=== PATIENT | male | born 1975 | race Caucasian/White ===

== ENCOUNTER 2017-10-05 21:10 | Emergency (ER) | payer OTHER ==
[2017-10-05 21:24] VITALS: BP 151/106; PULSE 130; RESP 20; TEMP 98.6; O2SAT 96
--- NOTE | 2017-10-05 21:40 | EDPHY ---
H & P Stated Complaint: ETOH Time Seen by Provider: 10/05/17 21:40 - Personal History Current Tetanus Diphtheria and Acellular Pertussis (TDAP): No - Medical/Surgical History Hx Asthma: No Hx Chronic Respiratory Disease: No Hx Diabetes: No Hx Cardiac Disease: Yes Hx Renal Disease: No Hx Cirrhosis: No Hx Alcoholism: Yes Hx HIV/AIDS: No Hx Splenectomy or Spleen Trauma: No Other PMH: congenital left hand deformity,pec muscle left side, ETOH abuse - Social History Smoking Status: Current every day smoker Constitutional: Initial Vital Signs Temperature (C) 37 C 10/05/17 21:21 Heart Rate 130 H 10/05/17 21:21 Respiratory Rate 20 10/05/17 21:21 Blood Pressure 151/106 H 10/05/17 21:21 O2 Sat (%) 96 10/05/17 21:21 O2 Delivery Mode Room Air Allergies/Adverse Reactions: Penicillins Allergy (Verified 10/05/17 21:20) Home Medications: Medication Instructions Recorded Cholecalciferol Vit D3 [Vitamin D3 1,000 units PO DAILY 08/09/14 (*)] Multivitamins [Multivitamin (*)] 1 each PO DAILY 08/09/14 [place]-3 Fatty Acids [Fish Oil 1000 2,000 mg PO DAILY 08/09/14 mg (*)] Aspirin [Aspirin 81mg (*)] 81 mg PO DAILY #0 tab 08/11/14 Ibuprofen [Motrin (*)] 400 mg PO TID PRN #0 tab 08/11/14 Medical Decision Making ED Course/Re-evaluation: CHIEF COMPLAINT: Wants to detox from alcohol. HISTORY OF PRESENT ILLNESS: The patient is a 42 y/o male with a history of alcohol abuse requesting help detoxing from alcohol. He has gone to rehab once previously and is willing to go again tonight. He said, "I came here voluntarily because I know I have a problem." His last alcohol intake was just prior to checking in here. He denies acute complaints. REVIEW OF SYSTEMS: A 10 point review of systems was performed and is negative with the exception of the elements mentioned in the history of present illness. PHYSICAL EXAM: HR, BP, O2 Sat, RR. Temp noted General Appearance: Alert, well hydrated, appropriate, and non-toxic appearing. Head: Atraumatic without scalp tenderness or obvious injury Eyes: Pupils equal, round, reactive to light and accommodation, EOMI, no trauma , no injection. Nose: Atraumatic, no rhinorrhea, clear. Throat: Mucus membranes moist. Neck: Supple, nontender, no lymphadenopathy. Respiratory: No retractions, no distress, no wheezes, and no accessory muscle use. Lungs are clear to auscultation bilaterally. Cardiovascular: Regular rate and rhythm, no murmurs, rubs, or gallops. Good capillary refill all extremities. Gastrointestinal: Abdomen is soft, nontender, non-distended, no masses, no rebound, no guarding, no peritoneal signs. Musculoskeletal: Normal active ROM of all extremities, atraumatic. Neurological: Alert, appropriate, and interactive. The patient has non-focal cranial nerves, motor, sensory, and cerebellar exam. Skin: No rashes, good turgor, no nodules on palpation. Past medical history: Alcohol abuse Past surgical history: noncontributory Family history: noncontributory Social history: Daily alcohol use. Lives in [place]. DIFFERENTIAL DIAGNOSIS: The differential diagnosis for the patient's symptoms included but was not limited to alcohol intoxication, alcohol abuse, alcohol withdrawal, psychiatric illness. MEDICAL DECISION MAKING: This is a 42 y/o male voluntarily requesting help getting into detox center for alcohol abuse. He has no acute complaints. He will be discharged to the [facility] with Librium prepack. Follow up and return precautions given. Patient has decided he does not want to go to the [facility]. He will not receive script for Librium and will be discharged home. Departure - Departure Disposition: Home, Routine, Self-Care Clinical Impression: Alcohol intoxication Qualifiers: Complication of substance-induced condition: uncomplicated Qualified Code(s): F10.920 - Alcohol use, unspecified with intoxication, uncomplicated Condition: Good Instructions: Alcohol Intoxication (ED) Additional Instructions: 1. Take Librium as prescribed for symptoms of withdrawal. 2. Go directly to detox center. 3. Follow up with primary care provider as needed. Referrals: Reid Jolley MD [Primary Care Provider] - As per Instructions [facility] Detox 24 Hours [Outside] - As per Instructions Report Scribed for: Ata Miguel Report Scribed by: Lily Marks Date of Report: 10/05/17 Time of Report: 21:44
[2017-10-05] MEDS ORDERED: CHLORDIAZEPOXIDE 25MG PREPK#6 BTL TAKEHOME ONE (21:44)
== END 2017-10-05 22:11 | disposition home or self-care (01) ==
DX: F10.920 Alcohol use, unspecified with intoxication, uncomplicated (principal); F17.200 Nicotine dependence, unspecified, uncomplicated; Z79.82 Long term (current) use of aspirin

== ENCOUNTER 2018-07-31 22:04 | Inpatient (IN) | payer OTHER ==
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
[2018-07-31 22:30] LABS: PLATELET COUNT 177 10^3/uL (150-400)
[2018-07-31 22:38] LABS: INR 0.97 (0.83-1.16); PROTIME(PATIENT) 13.1 SEC (12.0-15.0)
[2018-07-31] MEDS ORDERED: levETIRAcetam 1000MG/NACL 100 ML IV ONE (23:09)
[2018-07-31] MEDS ORDERED: ONDANSETRON 4 MG/2 ML VIAL IVP PRN (23:57)
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
[2018-07-31] MEDS ORDERED: IOPAMIDOL (ISOVUE-300) 100 ML BTL ONE (23:58)
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
[2018-08-01] MEDS ORDERED: fentaNYL 100 MCG/2 ML INJ IVP ONE (00:30)
[2018-08-01] MEDS: NS 1,000 ML IV SCH ×3 (00:41→20:52)
[2018-08-01] MEDS ORDERED: IOPAMIDOL (ISOVUE-300) 100 ML BTL ONE (00:42)
[2018-08-01] MEDS ORDERED: IOPAMIDOL (ISOVUE 370) 100 ML BTL IV ONE (00:52)
[2018-08-01] MEDS ORDERED: LORazepam 2 MG/ML INJ ONE (01:02)
[2018-08-01] MEDS ORDERED: LORazepam 2 MG/ML INJ IVP ONE (01:04)
[2018-08-01] MEDS ORDERED: LORazepam 2 MG/ML INJ IVP PRN (01:05)
[2018-08-01] MEDS ORDERED: FAMOTIDINE 20 MG in NS 100 ML IV ONE (01:06)
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
[2018-08-01 07:55] LABS: PLATELET COUNT 156 10^3/uL (150-400)
[2018-08-01] MEDS: levETIRAcetam 500MG/NACL 100 ML IV SCH ×2 (08:46→20:52)
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
[2018-08-01] MEDS: FAMOTIDINE 20 MG/NACL 50 ML IV SCH ×2 (09:14→20:52)
[2018-08-01] MEDS: TRANEXAMIC ACID 650 MG TAB PO SCH ×2 (09:17→21:48)
[2018-08-01] MEDS ORDERED: FLUMAZENIL 0.5 MG/5 ML MDV IVP PRN (10:14)
[2018-08-01] MEDS: LORazepam 2 MG/ML INJ IVP PRN ×4 (10:39→12:42)
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
[2018-08-01] MEDS: THIAMINE HCL 500 MG in NS 100 ML IV SCH (11:52)
[2018-08-01] MEDS ORDERED: PROTOCOL K PHOSPHATE 1 DOSE IV PRN (12:11)
[2018-08-01] MEDS ORDERED: PROTOCOL POTASSIUM 1 DOSE MISC PRN (12:11)
[2018-08-01] MEDS ORDERED: PROTOCOL MAGNESIUM 1 DOSE IV PRN (12:11)
[2018-08-01] MEDS: HALOPERIDOL LACT 5 MG/ML INJ IVP PRN (12:54)
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
[2018-08-01] MEDS: DEXMEDETOMIDINE HCL 400 MCG in NS 100 ML IV SCH ×2 (13:12→17:35)
[2018-08-01] MEDS ORDERED: HALOPERIDOL LACT 5 MG/ML INJ IVP ONE (13:15)
[2018-08-01] MEDS ORDERED: MAGNESIUM SULF 1 GM/DEXTROSE 100 ML IV ONE (13:16)
--- NOTE | 2018-08-01 14:47 | TRAUMAPNT ---
Trauma Tertiary Progress Note Subjective: pt babbling, does not answer questions. c collar in place. pe: lungs clear heart nml s1s2 no m chest tressa abd soft ext without injuries back non tender assess: tertiary survey shows no new injuries. plan: supportive care, cwa protocol. monitor brain bleed with serial imaging. Objective: Vital Signs Temp Pulse Resp BP Pulse Ox 37 C 105 H 24 H 125/75 H 93 08/01/18 13:00 08/01/18 14:00 08/01/18 14:00 08/01/18 14:00 08/01/18 14:00 Laboratory Results 08/01/18 07:43 08/01/18 05:30 07/31/18 08/01/18 08/02/18 05:59 05:59 05:59 Intake Total 622 Output Total 1000 350 Balance -378 -350 PT 13.1 SEC (12.0-15.0) 07/31/18 22:22 INR 0.97 (0.83-1.16) 07/31/18 22:22
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
[2018-08-01 16:59] LABS: PLATELET COUNT 150 10^3/uL (150-400)
[2018-08-01] MEDS: LORazepam 2 MG/ML INJ IVP SCH (17:34)
[2018-08-01] MEDS: POTASSIUM Cl (KCl) 100 ML IV SCH ×2 (18:41→20:52)
[2018-08-01] MEDS ORDERED: TRANEXAMIC ACID 650 MG in NS 100 ML IV ONE (21:00)
[2018-08-02] MEDS: DEXMEDETOMIDINE HCL 400 MCG in NS 100 ML IV SCH ×2 (00:12→11:56)
[2018-08-02] MEDS: LORazepam 2 MG/ML INJ IVP SCH ×5 (00:15→23:31)
[2018-08-02] MEDS: LORazepam 2 MG/ML INJ IVP PRN ×4 (01:38→23:34)
[2018-08-02 03:56] LABS: PLATELET COUNT 121 10^3/uL (150-400)
[2018-08-02] MEDS: HALOPERIDOL LACT 5 MG/ML INJ IVP PRN ×2 (04:22→23:56)
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
[2018-08-02] MEDS: THIAMINE HCL 500 MG in NS 100 ML IV SCH (08:39)
[2018-08-02] MEDS: FAMOTIDINE 20 MG/NACL 50 ML IV SCH ×2 (08:51→20:38)
[2018-08-02] MEDS: levETIRAcetam 500MG/NACL 100 ML IV SCH ×2 (08:51→20:38)
[2018-08-02] MEDS ORDERED: THIAMINE HCL 500 MG in NS 100 ML IV SCH (09:00)
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
[2018-08-02] MEDS: TRANEXAMIC ACID 650 MG TAB PO SCH (12:44)
[2018-08-02] MEDS: TRANEXAMIC ACID 650 MG in NS 100 ML IV SCH ×2 (13:55→22:47)
--- NOTE | 2018-08-02 15:19 | ASMTCMCOM ---
CM Note CM Note Notes: "Family Meeting" with sister, Francia, Med Proxy via the phone. Francia reports that patient is and has a 9yr old daughter that he shares custody with his ex-. He has been in ETOH tx x 2 at [facility]. Sister reports that when things get tough for him he turns to drinking. He worked in [employer] in good [employer] jobs for 20yrs before coming to [place]. His mother and father when he was young. He didn't get along with his step father. His natural father when he was 16. He went to [facility] but failed after 1 yr. 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 Francia reports that she and her mother are waiting for patient to wake up more before they make the trip to [place]. She would like to be contacted [phone] with updates on her brother. Francia is appreciative of the updates she gets from the nursing staff. Date Signed: 08/02/2018 03:18 PM Electronically Signed By:Carmita Donahue LCSW
[2018-08-02] MEDS: NS 1,000 ML IV SCH (18:40)
[2018-08-03] MEDS: DEXMEDETOMIDINE HCL 400 MCG in NS 100 ML IV SCH ×4 (00:40→21:58)
[2018-08-03 04:47] LABS: PLATELET COUNT 111 10^3/uL (150-400)
[2018-08-03] MEDS: LORazepam 2 MG/ML INJ IVP SCH ×4 (05:17→21:58)
[2018-08-03] MEDS: NS 1,000 ML IV SCH ×2 (06:03→21:59)
[2018-08-03] MEDS: LORazepam 2 MG/ML INJ IVP PRN ×9 (06:29→22:07)
[2018-08-03] MEDS: THIAMINE HCL 500 MG in NS 100 ML IV SCH (07:43)
--- NOTE | 2018-08-03 08:43 | TRAUMAPN ---
Trauma Progress Note Subjective: Patient sitting up in bed unable to answer questions. Not responsive to painful stimuli. Objective: CXR reviewed. Right lower lobe shows consolidation. No pneumothorax. Vital Signs Temp Pulse Resp BP Pulse Ox 37.0 C 75 24 H 117/77 96 08/03/18 08:00 08/03/18 08:00 08/03/18 08:00 08/03/18 08:00 08/03/18 08:00 Laboratory Results 08/03/18 04:10 08/03/18 04:10 08/02/18 08/03/18 08/04/18 05:59 05:59 05:59 Intake Total 2440.2 2334 Output Total 2500 1575 Balance -59.8 759 PT 13.1 SEC (12.0-15.0) 07/31/18 22:22 INR 0.97 (0.83-1.16) 07/31/18 22:22 Physical Exam - Physical Exam General Appearance: obtunded EENT: TM abnormal (R) (R small hemotympanum visualized. Left TM normal), other ( PERRL) Neck: other (Hard cervical collar in place) Respiratory: decreased breath sounds, crackles, rales, rhonchi, wheezing Cardiac/Chest: normal peripheral pulses, regular rate, rhythm Peripheral Pulses: 4+: dorsalis-pedis (R), dorsalis-pedis (L) Abdomen: normal bowel sounds Skin: normal color Neuro/Psych: cognition abnormalities, speech abnormalities (Nurse reports occasional use of innapropriate words, otherwise incomprehensible or non verbal. ), depressed affect, other (Patient obtunded. GCS 6 (on presidex). Non responsive to painful stimuli. DTR symmetrical. )
[2018-08-03] MEDS: TRANEXAMIC ACID 650 MG in NS 100 ML IV SCH ×2 (09:11→22:31)
[2018-08-03] MEDS: FAMOTIDINE 20 MG/NACL 50 ML IV SCH (09:11)
[2018-08-03] MEDS: levETIRAcetam 500MG/NACL 100 ML IV SCH (09:11)
[2018-08-03] MEDS ORDERED: IPRATROPIUM/ALBUTEROL 3 ML DEYVIAL IH PRN (10:28)
[2018-08-03] MEDS: ERTAPENEM 1 GM in NS 100 ML IV SCH (11:47)
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
[2018-08-03] MEDS: HALOPERIDOL LACT 5 MG/ML INJ IVP PRN (18:34)
[2018-08-03] MEDS: FAMOTIDINE 20 MG TAB TUBE SCH (21:58)
[2018-08-03] MEDS: levETIRAcetam 500 MG/5 ML UDCUP TUBE SCH (21:58)
[2018-08-04] MEDS: LORazepam 2 MG/ML INJ IVP PRN ×8 (00:26→22:55)
[2018-08-04] MEDS: DEXMEDETOMIDINE HCL 400 MCG in NS 100 ML IV SCH ×3 (00:29→16:41)
[2018-08-04] MEDS: NS 1,000 ML IV SCH ×2 (00:29→14:51)
[2018-08-04] MEDS: LORazepam 2 MG/ML INJ IVP SCH ×6 (02:44→21:17)
[2018-08-04] MEDS: HALOPERIDOL LACT 5 MG/ML INJ IVP PRN ×2 (04:57→19:11)
[2018-08-04 05:16] LABS: PLATELET COUNT 127 10^3/uL (150-400)
[2018-08-04] MEDS ORDERED: MAGNESIUM SULF 1 GM/DEXTROSE 100 ML IV ONE (05:48)
[2018-08-04] MEDS ORDERED: POTASSIUM CL 10 MEQ TAB PO ONE ×2 (05:48→21:13)
[2018-08-04] MEDS: levETIRAcetam 500 MG/5 ML UDCUP TUBE SCH ×2 (08:37→21:12)
[2018-08-04] MEDS: THIAMINE HCL 100 MG TAB TUBE SCH (08:37)
[2018-08-04] MEDS: ERTAPENEM 1 GM in NS 100 ML IV SCH (08:38)
[2018-08-04] MEDS: FAMOTIDINE 20 MG TAB TUBE SCH ×2 (08:38→21:13)
[2018-08-04] MEDS ORDERED: THIAMINE HCL 100 MG TAB PO SCH (09:00)
[2018-08-04] MEDS: TRANEXAMIC ACID 650 MG in NS 100 ML IV SCH ×2 (10:23→21:12)
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
--- NOTE | 2018-08-04 12:27 | SOAPPROG ---
SOAP Progress Note Assessment/Plan: Assessment: SEEN WITH MY NURSE PRACTITIONER/PLEASE REFER TO HER NOTE PATIENT IS A QUITE TO STUPOROUS AND SEDATED HAVING GONE INTO FLOOR DTS CHEST X-RAY REVEALS A RIGHT PLEURAL EFFUSION AND OR HEMOTHORAX PATIENT TO BE BRONCH TODAY WILL CUT BACK ON HIS ATIVAN MAY EVENTUALLY NEED A THORACENTESIS OR RIGHT CHEST TUBE/MAY ALSO EVENTUALLY NEED INTUBATION IF HE REMAINS IS SEDATED Plan: FOLLOW-UP CHEST X-RAY 08/04/18 12:22 Objective: Vital Signs Temp Pulse Resp BP Pulse Ox 37.1 C 84 24 H 117/72 97 08/04/18 08:00 08/04/18 11:00 08/04/18 11:00 08/04/18 08:00 08/04/18 11:00 Microbiology 08/03/18 11:40 - Final Sputum, Induced/Suctioned Laboratory Results 08/04/18 04:50 08/04/18 04:50 08/03/18 08/04/18 08/05/18 05:59 05:59 05:59 Intake Total 2334 2714 Output Total 1575 2400 Balance 759 314 PT 13.1 SEC (12.0-15.0) 07/31/18 22:22 INR 0.97 (0.83-1.16) 07/31/18 22:22 ICD10 Worksheet Patient Problems: Problems Problem Status Onset Alcohol intoxication Acute Brain contusion Acute Liver laceration Acute Skull fracture Acute Subarachnoid hemorrhage Acute Myocarditis Acute
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
[2018-08-04] MEDS ORDERED: LIDOCAINE 1% 300 MG/30 ML SDV MISC ONE (14:17)
[2018-08-04] MEDS ORDERED: LIDOCAINE 2% JELLY 5 ML TUBE TP ONE (14:22)
[2018-08-04] MEDS ORDERED: MIDAZOLAM 2 MG/2 ML VIAL IVP ONE ×2 (15:00→15:15)
[2018-08-04] MEDS ORDERED: MIDAZOLAM 2 MG/2 ML VIAL ONE (15:08)
[2018-08-04] MEDS ORDERED: LIDOCAINE 1% 300 MG/30 ML SDV ONE (15:22)
--- NOTE | 2018-08-04 17:59 | GPN ---
DATE OF PROCEDURE: 08/04/2018 PROCEDURE: Therapeutic bronchoscopy. INDICATION: Pneumonia, secretions in a patient status post closed head injury, withdrawing from alco hol. DESCRIPTION OF PROCEDURE: The procedure was performed in the intensive care unit. Informed consent was obtained from the patient's sister and power of energy attorney. Appropriate time-out was performed. 4 mg of IV Versed was used for additional conscious sedation. The patient was on Precedex at the time of the procedure and has been getting Ativan. The fiberoptic bronchoscope was passed via bite block orally into the larynx. The vocal cords were i dentified and cannulated. They appeared to move normally with phonation and cough. The bronchoscope was advanced into the trachea in the lower tracheobronchial tree bilaterally. There were at least m odest secretions. Some of these were expectorated with cough induced by the bronchoscopy despite the use of 1% lidocaine for topical anesthesia. Other secretions were suctioned from the trachea and lo wer tracheobronchial tree bilaterally. There are no mucosal abnormalities. There is mild generalize d erythema. No cultures were sent as they had been sent a day previously by nasotracheal suction. The patient tolerated the procedure well. There were no complications. At the end of the procedure, all present secretions had been removed. There were no complications. /[id number]/MODL
[2018-08-04] MEDS: DEXMEDETOMIDINE HCL 1,000 MCG in NS 250 ML IV SCH (21:00)
[2018-08-04] MEDS ORDERED: PNEUMOCOCCAL 0.5ML VACCINE VIAL IM ONE (22:34)
[2018-08-05] MEDS: LORazepam 2 MG/ML INJ IVP PRN ×3 (01:30→19:45)
[2018-08-05] MEDS: LORazepam 2 MG/ML INJ IVP SCH ×7 (02:05→23:16)
[2018-08-05] MEDS: NS 1,000 ML IV SCH ×2 (04:14→18:10)
[2018-08-05] MEDS: HALOPERIDOL LACT 5 MG/ML INJ IVP PRN ×2 (04:14→19:30)
[2018-08-05 04:57] LABS: PLATELET COUNT 136 10^3/uL (150-400)
[2018-08-05] MEDS ORDERED: POTASSIUM CL 10 MEQ TAB PO ONE ×2 (05:36→20:24)
[2018-08-05] MEDS ORDERED: MAGNESIUM SULF 1 GM/DEXTROSE 100 ML BAG IV ONE (05:49)
[2018-08-05] MEDS ORDERED: MAGNESIUM SULF 1 GM/DEXTROSE 100 ML IV ONE (05:53)
[2018-08-05] MEDS: DEXMEDETOMIDINE HCL 1,000 MCG in NS 250 ML IV SCH ×2 (06:00→20:53)
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
[2018-08-05] MEDS: levETIRAcetam 500 MG/5 ML UDCUP TUBE SCH ×2 (08:32→20:52)
[2018-08-05] MEDS: TRANEXAMIC ACID 650 MG in NS 100 ML IV SCH (08:32)
[2018-08-05] MEDS: FAMOTIDINE 20 MG TAB TUBE SCH ×2 (08:33→20:52)
[2018-08-05] MEDS: THIAMINE HCL 100 MG TAB TUBE SCH (08:34)
[2018-08-05] MEDS: ERTAPENEM 1 GM in NS 100 ML IV SCH (08:53)
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
[2018-08-05] MEDS: ENOXAPARIN 40 MG/0.4 ML SYR SC SCH (15:11)
[2018-08-05] MEDS ORDERED: TRANEXAMIC ACID 650 MG in NS 100 ML IV SCH (21:00)
[2018-08-06] MEDS: LORazepam 2 MG/ML INJ IVP SCH ×6 (02:13→22:46)
[2018-08-06] MEDS: DEXMEDETOMIDINE HCL 1,000 MCG in NS 250 ML IV SCH ×3 (05:53→22:45)
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
--- NOTE | 2018-08-06 08:28 | TRAUMAPN ---
Trauma Progress Note - Problem/Surgery Performed (1) Hemopneumothorax on right Assessment/Plan: CXR 08/05 shows improvement/will continue to observe (2) Liver laceration Assessment/Plan: stable hemodynamically/no need for additional imaging Qualifiers: Encounter type: initial encounter Qualified Code(s): S36.113A - Laceration of liver, unspecified degree, initial encounter (3) Skull fracture Assessment/Plan: will need hearing assessment Qualifiers: Encounter type: initial encounter Skull bone/location: other skull bone Fracture type: closed Laterality: right Qualified Code(s): S02.81XA - Fracture of other specified skull and facial bones, right side, initial encounter for closed fracture (4) Subarachnoid hemorrhage Assessment/Plan: continue management per neurosurgery/at risk for prison impairment Assessment/Plan: Post Injury Day #6/remains on Precedex for EtOH withdrawal and agitation due to severe brain injury tolerating tube feedings continue supportive care consider sedation vacation to assess neuro status Objective: Vital Signs Temp Pulse Resp BP Pulse Ox 37.2 C 66 26 H 138/84 H 89 L 08/06/18 04:00 08/06/18 07:00 08/06/18 07:00 08/06/18 07:00 08/06/18 07:00 Microbiology 08/03/18 11:40 - Final Sputum, Induced/Suctioned Laboratory Results 08/05/18 04:30 08/06/18 04:25 08/05/18 08/06/18 08/07/18 05:59 05:59 05:59 Intake Total 3007 3138 Output Total 2000 1925 Balance 1007 1213 PT 13.1 SEC (12.0-15.0) 07/31/18 22:22 INR 0.97 (0.83-1.16) 07/31/18 22:22 - C-Spine Clearance Cervical Spine Cleared: No Physical Exam - Physical Exam General Appearance: other (sedated and breathing spontaneously/) EENT: other (hard cervical collar in place/Dobhoff via right nares/[id number]) Respiratory: lungs clear, decreased breath sounds Cardiac/Chest: regular rate, rhythm Peripheral Pulses: 4+: femoral (R), femoral (L), dorsalis-pedis (R), dorsalis- pedis (L) Abdomen: normal bowel sounds, non-tender, soft Male Genitalia: other (Mccauley cath) Rectal: deferred Skin: warm/dry Neuro/Psych: other (sedated/withdraws to pain) Time Spent w/Patient (minutes): 20
[2018-08-06] MEDS ORDERED: FUROSEMIDE 20 MG/2 ML VIAL IVP ONE (09:13)
[2018-08-06] MEDS ORDERED: POTASSIUM CL 20 MEQ/15 ML UDCUP PO ONE (09:14)
[2018-08-06] MEDS: THIAMINE HCL 100 MG TAB TUBE SCH (09:35)
[2018-08-06] MEDS: FAMOTIDINE 20 MG TAB TUBE SCH (09:36)
[2018-08-06] MEDS: ENOXAPARIN 40 MG/0.4 ML SYR SC SCH (09:37)
[2018-08-06] MEDS: ERTAPENEM 1 GM in NS 100 ML IV SCH (09:37)
[2018-08-06] MEDS: levETIRAcetam 500 MG/5 ML UDCUP TUBE SCH (09:37)
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
[2018-08-06] MEDS ORDERED: POTASSIUM CL 10 MEQ TAB PO ONE (10:41)
[2018-08-06] MEDS: HALOPERIDOL LACT 5 MG/ML INJ IVP PRN ×3 (11:38→20:38)
[2018-08-06] MEDS ORDERED: LIDOCAINE 2% JELLY 5 ML TUBE TP ONE (13:21)
[2018-08-06] MEDS ORDERED: LIDOCAINE 1% 300 MG/30 ML SDV MISC ONE (13:21)
[2018-08-06] MEDS ORDERED: LORazepam 2 MG/ML INJ IVP SCH (14:28)
[2018-08-06] MEDS ORDERED: MIDAZOLAM 2 MG/2 ML VIAL ONE (15:40)
[2018-08-06] MEDS ORDERED: MIDAZOLAM 2 MG/2 ML VIAL IVP ONE (16:06)
--- NOTE | 2018-08-06 16:43 | GPN ---
PROCEDURE: THERAPEUTIC BRONCHOSCOPY DATE OF PROCEDURE: 08/06/2018 INDICATION: Worsening x-ray and increasing hypoxemia in a patient with a severe closed head injury, not on the ventilator, who is in alcohol withdrawal. This procedure is being done to remove secretions and obtain deep cultures. He does have aspiration pneumonia and is status post therapeutic bronchoscopies several days ago. PROCEDURE NOTE: The procedure was done in the patient's room in the intensive care unit. Informed consent was previously obtained previously obtained from the patient's sister and power of civil attorney. Appropriate time-out was performed. 15 cc of 1% lidocaine was used to anesthetize the posterior oropharynx and the vocal cords/lower tracheobronchial tree. 2 mg of intravenous Versed were given for conscious sedation. The patient also received 2 mg of IV morphine prior to the bronchoscopy per his usual medications. The fiberoptic bronchoscope was passed via bite block orally into the larynx. The vocal cords were identified. They move normally with cough and respiration. The bronchoscope was then advanced through the vocal cords and into the trachea and from there into the lower tracheobronchial tree bilaterally. All areas were observed to at least the segmental level. Anatomy was normal bilaterally. Secretions were much less than they were several days ago with only relatively full small amount of purulent mucus found. This was removed with suction and lavage. A culture was sent. Underlying anatomy was normal. The mucosa was moderately erythematous throughout. The patient tolerated the procedure well. Vital signs and oxygen saturations on supplemental oxygen remained stable throughout the procedure. /[id number]/MODL MTDD
--- NOTE | 2018-08-06 17:20 | ASMTCMCOM ---
CM Note CM Note Notes: 08/06/2018 Case Management Note Reviewed chart. PT is recommending inpatient rehab. Chloe is following the case. Pt remains in severe ETOH withdrawl and per Dr. Nunez note pt is not decisional on 08/06. Sister Francia is medical proxy. Case Management d/c poc: to be determined. Case Management to follow. Date Signed: 08/06/2018 05:19 PM Electronically Signed By:Raina Cancino RN
[2018-08-06] MEDS: METOCLOPRAMIDE 10 MG/2 ML VIAL IVP SCH (18:16)
[2018-08-06] MEDS: LORazepam 2 MG/ML INJ IVP PRN (20:05)
[2018-08-06] MEDS: FAMOTIDINE 20 MG/NACL 50 ML IV SCH (20:38)
[2018-08-06] MEDS: levETIRAcetam 500MG/NACL 100 ML IV SCH (21:29)
[2018-08-06] MEDS: NS 1,000 ML IV SCH (22:45)
[2018-08-07] MEDS: METOCLOPRAMIDE 10 MG/2 ML VIAL IVP SCH ×4 (01:45→17:36)
[2018-08-07] MEDS: LORazepam 2 MG/ML INJ IVP SCH ×3 (01:45→09:44)
[2018-08-07] MEDS: HALOPERIDOL LACT 5 MG/ML INJ IVP PRN ×2 (03:16→19:34)
[2018-08-07] MEDS: POTASSIUM Cl (KCl) 100 ML IV SCH ×5 (07:00→20:30)
--- NOTE | 2018-08-07 07:36 | SOAPPROG ---
SOAP Progress Note Assessment/Plan: Assessment: SEEN WITH MY NURSE PRACTITIONER/PLEASE REFER TO HER NOTE PATIENT IS A QUITE TO STUPOROUS AND SEDATED HAVING GONE INTO FLOOR DTS CHEST X-RAY REVEALS A RIGHT PLEURAL EFFUSION AND OR HEMOTHORAX PATIENT TO BE BRONCH TODAY WILL CUT BACK ON HIS ATIVAN MAY EVENTUALLY NEED A THORACENTESIS OR RIGHT CHEST TUBE/MAY ALSO EVENTUALLY NEED INTUBATION IF HE REMAINS IS SEDATED Plan: FOLLOW-UP CHEST X-RAY 08/04/18 12:22 08/07/18 07:35 INCREASING HEMOTHORAX ON CXR Objective: Vital Signs Temp Pulse Resp BP Pulse Ox 36.8 C 58 L 20 138/94 H 94 08/07/18 04:00 08/07/18 05:58 08/07/18 05:58 08/07/18 04:00 08/07/18 05:58 Microbiology 08/06/18 16:08 - Final Sputum, Induced/Suctioned 08/03/18 11:40 - Final Sputum, Induced/Suctioned Sputum Culture - Final Staphylococcus Aureus Strep Agalactiae Group B Laboratory Results 08/05/18 04:30 08/07/18 05:35 08/06/18 08/07/18 08/08/18 05:59 05:59 05:59 Intake Total 3131 2755 Output Total 1925 3100 Balance 1213 -345 PT 13.1 SEC (12.0-15.0) 07/31/18 22:22 INR 0.97 (0.83-1.16) 07/31/18 22:22 ICD10 Worksheet Patient Problems: Problems Problem Status Onset Alcohol intoxication Acute Brain contusion Acute Hemopneumothorax on right Acute Liver laceration Acute Skull fracture Acute Subarachnoid hemorrhage Acute Myocarditis Acute
[2018-08-07] MEDS: DEXMEDETOMIDINE HCL 1,000 MCG in NS 250 ML IV SCH ×2 (09:07→17:30)
[2018-08-07] MEDS: ERTAPENEM 1 GM in NS 100 ML IV SCH (09:08)
[2018-08-07] MEDS: ENOXAPARIN 40 MG/0.4 ML SYR SC SCH (09:09)
[2018-08-07] MEDS: levETIRAcetam 500MG/NACL 100 ML IV SCH ×2 (09:09→22:06)
[2018-08-07] MEDS: FAMOTIDINE 20 MG/NACL 50 ML IV SCH ×2 (09:54→19:37)
[2018-08-07] MEDS: THIAMINE HCL 100 MG TAB TUBE SCH (09:55)
[2018-08-07] MEDS: LORazepam 2 MG/ML INJ IVP PRN ×3 (09:56→20:25)
[2018-08-07] MEDS ORDERED: MIDAZOLAM 2 MG/2 ML VIAL IVP ONE ×2 (10:32→15:28)
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
[2018-08-07] MEDS ORDERED: LIDOCAINE 1% 300 MG/30 ML SDV ONE (15:59)
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
[2018-08-08] MEDS: METOCLOPRAMIDE 10 MG/2 ML VIAL IVP SCH ×4 (00:30→17:08)
[2018-08-08] MEDS: DEXMEDETOMIDINE HCL 1,000 MCG in NS 250 ML IV SCH ×2 (01:27→12:57)
[2018-08-08] MEDS: LORazepam 2 MG/ML INJ IVP PRN ×4 (01:43→19:27)
[2018-08-08] MEDS: HALOPERIDOL LACT 5 MG/ML INJ IVP PRN ×3 (01:43→22:55)
[2018-08-08] MEDS: ERTAPENEM 1 GM in NS 100 ML IV SCH (08:11)
[2018-08-08] MEDS: FAMOTIDINE 20 MG/NACL 50 ML IV SCH (08:11)
[2018-08-08] MEDS: ENOXAPARIN 40 MG/0.4 ML SYR SC SCH (08:12)
[2018-08-08] MEDS: THIAMINE HCL 100 MG TAB TUBE SCH (08:12)
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
[2018-08-08] MEDS: levETIRAcetam 500MG/NACL 100 ML IV SCH (09:18)
[2018-08-08] MEDS: NS 1,000 ML IV SCH (18:14)
[2018-08-08] MEDS: levETIRAcetam 500 MG/5 ML UDCUP TUBE SCH (21:31)
[2018-08-08] MEDS: FAMOTIDINE 20 MG TAB TUBE SCH (21:31)
[2018-08-09] MEDS: METOCLOPRAMIDE 10 MG/2 ML VIAL IVP SCH ×4 (00:43→17:57)
[2018-08-09] MEDS: LORazepam 2 MG/ML INJ IVP PRN ×2 (02:31→10:00)
[2018-08-09] MEDS: HALOPERIDOL LACT 5 MG/ML INJ IVP PRN ×4 (05:18→23:21)
[2018-08-09] MEDS: NS 1,000 ML IV SCH (05:50)
[2018-08-09] MEDS: DEXMEDETOMIDINE HCL 1,000 MCG in NS 250 ML IV SCH ×2 (07:16→23:22)
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
[2018-08-09] MEDS: THIAMINE HCL 100 MG TAB TUBE SCH (10:25)
[2018-08-09] MEDS: ENOXAPARIN 40 MG/0.4 ML SYR SC SCH (10:25)
[2018-08-09] MEDS: levETIRAcetam 500 MG/5 ML UDCUP TUBE SCH ×2 (10:25→21:26)
[2018-08-09] MEDS: FAMOTIDINE 20 MG TAB TUBE SCH ×2 (10:25→21:26)
[2018-08-09] MEDS: ERTAPENEM 1 GM in NS 100 ML IV SCH (10:26)
--- NOTE | 2018-08-09 10:59 | SOAPPROG ---
SOAP Progress Note Assessment/Plan: Assessment: SEEN WITH MY NURSE PRACTITIONER/PLEASE REFER TO HER NOTE PATIENT IS A QUITE TO STUPOROUS AND SEDATED HAVING GONE INTO FLOOR DTS CHEST X-RAY REVEALS A RIGHT PLEURAL EFFUSION AND OR HEMOTHORAX PATIENT TO BE BRONCH TODAY WILL CUT BACK ON HIS ATIVAN MAY EVENTUALLY NEED A THORACENTESIS OR RIGHT CHEST TUBE/MAY ALSO EVENTUALLY NEED INTUBATION IF HE REMAINS IS SEDATED Plan: FOLLOW-UP CHEST X-RAY 08/04/18 12:22 08/07/18 07:35 INCREASING HEMOTHORAX ON CXR 08/09/18 10:57 NOT MUCH IMPROVEMENT/ STILL AGITATED/ CXR CLEAR AFTER LARGE VOLUME THORASCENTESIS AFEBRILE/ VS STABLE Objective: Vital Signs Temp Pulse Resp BP Pulse Ox 37.2 C 68 20 121/76 H 94 08/09/18 04:00 08/09/18 06:00 08/09/18 06:00 08/09/18 06:00 08/09/18 06:00 Microbiology 08/06/18 16:08 - Final Sputum, Induced/Suctioned 08/07/18 16:27 Gram Stain - Final Thoracic Fluid - Aspirate Laboratory Results 08/08/18 04:35 08/09/18 05:40 08/08/18 08/09/18 08/10/18 05:59 05:59 05:59 Intake Total 3418 3488 Output Total 2500 2950 Balance 918 538 PT 13.1 SEC (12.0-15.0) 07/31/18 22:22 INR 0.97 (0.83-1.16) 07/31/18 22:22 ICD10 Worksheet Patient Problems: Problems Problem Status Onset Alcohol intoxication Acute Brain contusion Acute Hemopneumothorax on right Acute Liver laceration Acute Skull fracture Acute Subarachnoid hemorrhage Acute Myocarditis Acute
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
--- NOTE | 2018-08-09 16:17 | ASMTCMCOM ---
CM Note CM Note Notes: Not much change in patient. Not following commands, will open eyes at times and say some words. Patient's sister, Jaky/Financial LAMA and mother, Isabel are here from [place]. "Family Meeting" sister and mother are here to support patient, pay bills, check Ins, get a Restraining Order. Family reports that these are difficult tasks given patient's lack of communication with them. 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 He has [employer] Ins and could apply for short term disability- will need MD to complete paperwork. Family also wants to place a Restraining Order on Molly who has been living with him. Family given phone# and address to assist with Order. Date Signed: 08/09/2018 04:16 PM Electronically Signed By:Carmita Donahue LCSW
[2018-08-10] MEDS: METOCLOPRAMIDE 10 MG/2 ML VIAL IVP SCH ×4 (02:35→18:01)
[2018-08-10] MEDS: HALOPERIDOL LACT 5 MG/ML INJ IVP PRN ×3 (05:34→21:40)
[2018-08-10] MEDS: NS 1,000 ML IV SCH (05:36)
[2018-08-10] MEDS: LORazepam 2 MG/ML INJ IVP PRN ×4 (08:03→16:10)
[2018-08-10] MEDS: FAMOTIDINE 20 MG TAB TUBE SCH ×2 (08:07→21:40)
[2018-08-10] MEDS: ENOXAPARIN 40 MG/0.4 ML SYR SC SCH (08:07)
[2018-08-10] MEDS: levETIRAcetam 500 MG/5 ML UDCUP TUBE SCH ×2 (08:07→21:40)
[2018-08-10] MEDS: THIAMINE HCL 100 MG TAB TUBE SCH (08:07)
[2018-08-10] MEDS: ERTAPENEM 1 GM in NS 100 ML IV SCH (08:07)
--- NOTE | 2018-08-10 08:36 | TRAUMAPN ---
Trauma Progress Note - Problem/Surgery Performed (1) Hemopneumothorax on right Assessment/Plan: diminished breath sounds right base (2) Liver laceration Assessment/Plan: stable hemodynamically/no need for additional imaging Qualifiers: Encounter type: initial encounter Qualified Code(s): S36.113A - Laceration of liver, unspecified degree, initial encounter (3) Skull fracture Assessment/Plan: Right temporal fracture will need hearing assessment when more recovered Qualifiers: Encounter type: initial encounter Skull bone/location: other skull bone Fracture type: closed Laterality: right Qualified Code(s): S02.81XA - Fracture of other specified skull and facial bones, right side, initial encounter for closed fracture (4) Subarachnoid hemorrhage Assessment/Plan: slow recovery of neuro function/should be past EtOH withdrawal-still very agitated and requiring prn Ativan continue management per neurosurgery/at 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 terminal 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 Assessment/Plan: Post Injury Day #10, severe brain injury with uncertain recovery of baseline function No need for surgical intervention at this point tolerating tube feedings continue supportive care/consider transfer to LTAC or computer terminal operator neuro rehab Subjective: opens eyes spontaneously, incomprehensible words requiring restraint to protect from tube/IV removal Objective: Vital Signs Temp Pulse Resp BP Pulse Ox 37 C 120 H 22 H 111/64 90 L 08/10/18 06:00 08/10/18 06:00 08/10/18 06:00 08/10/18 06:00 08/10/18 06:00 Microbiology 08/07/18 16:27 Gram Stain - Final Thoracic Fluid - Aspirate 08/06/18 16:08 - Final Sputum, Induced/Suctioned Sputum Culture - Final Laboratory Results 08/08/18 04:35 08/09/18 18:20 08/09/18 08/10/18 08/11/18 05:59 05:59 05:59 Intake Total 3488 3790 Output Total 2950 3050 Balance 538 740 PT 13.1 SEC (12.0-15.0) 07/31/18 22:22 INR 0.97 (0.83-1.16) 07/31/18 22:22 - C-Spine Clearance Cervical Spine Cleared: No Physical Exam - Physical Exam General Appearance: other (agitated/soft restraints) EENT: other (P5RRL/Dobhoff in place) Neck: other (hard cervical collar remains in place) Respiratory: decreased breath sounds (right base) Cardiac/Chest: regular rate, rhythm Peripheral Pulses: 4+: dorsalis-pedis (R), dorsalis-pedis (L) Abdomen: normal bowel sounds, non-tender, soft Male Genitalia: other (Mccauley cath) Rectal: deferred Skin: warm/dry Neuro/Psych: cognition abnormalities, speech abnormalities, other (DTRs symmetrical)
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
[2018-08-10] MEDS ORDERED: ALTEPLASE 2 MG VIAL IVP PRN (09:23)
[2018-08-10] MEDS ORDERED: CANN-EASE 2 GM TUBE TP PRN (11:58)
--- NOTE | 2018-08-10 15:03 | ASMTCMCOM ---
CM Note CM Note Notes: Met with patient's mother and sister Francia. Made copies of the [facility] papers and Living Will and placed them in the front of the chart. Both Francia and Isabel are emotionally spent today as a result of the long list of things to accomplish in a short period of time and coming to terms with patient's current medical condition. Patient's mother, Isabel took care of her mother in a prison for years , though it took it's toll and she had a "nervous breakdown". Isabel is overwhelmed also as her , patient's step father has not been supportive due to his issues around patient's alcoholism. Francia is her main source of support. We will explore options for placement tomorrow. Francia states the family does not have the resources to move patient back to [place] unless he at some point is able to go by car, in which case Francia and her would drive him home. We will be exploring resources for placement here in [place] initially.Dr. Moon would like patient to go to LTAC if he qualifies and then on to [place] for rehab when he is medically ready. Francia says they are working on patient's short term disability which should be good through 01/10/19. This will help with placement needs. CM will follow. Date Signed: 08/10/2018 03:02 PM Electronically Signed By:Ashly Simmons LCSW
[2018-08-11] MEDS: LORazepam 2 MG/ML INJ IVP PRN ×6 (01:27→22:33)
[2018-08-11] MEDS: METOCLOPRAMIDE 10 MG/2 ML VIAL IVP SCH ×4 (01:30→17:53)
[2018-08-11] MEDS: DEXMEDETOMIDINE HCL 1,000 MCG in NS 250 ML IV SCH ×3 (06:13→20:36)
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
[2018-08-11] MEDS ORDERED: POTASSIUM CL 10 MEQ TAB PO ONE ×2 (07:50→09:30)
[2018-08-11] MEDS: ENOXAPARIN 40 MG/0.4 ML SYR SC SCH (08:00)
[2018-08-11] MEDS: THIAMINE HCL 100 MG TAB TUBE SCH ×2 (08:00→10:02)
[2018-08-11] MEDS: ERTAPENEM 1 GM in NS 100 ML IV SCH (08:00)
[2018-08-11] MEDS: levETIRAcetam 500 MG/5 ML UDCUP TUBE SCH ×3 (08:01→20:35)
[2018-08-11] MEDS ORDERED: POTASSIUM Cl (KCl) 100 ML IV ONE (08:15)
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
[2018-08-11] MEDS: HALOPERIDOL LACT 5 MG/ML INJ IVP PRN ×2 (09:15→20:33)
[2018-08-11] MEDS: FAMOTIDINE 20 MG TAB TUBE SCH ×3 (10:01→20:34)
[2018-08-11] MEDS: NS 1,000 ML IV SCH ×2 (11:18→20:36)
[2018-08-11] MEDS: guaiFENesin 200 MG/10 ML UDL TUBE SCH ×2 (11:25→20:34)
[2018-08-11] MEDS: NICOTINE 14 MG/24 HR PATCH TD SCH (11:25)
[2018-08-11] MEDS: NYSTATIN SUSP 500000 UNIT/5 ML UDCUP PO SCH ×3 (11:25→20:35)
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
[2018-08-11] MEDS: BENEFIBER/NUTRISOURCE FIBER PKT 1 EACH PO SCH (14:44)
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
[2018-08-11] MEDS ORDERED: POTASSIUM CL 20 MEQ/15 ML UDCUP PO ONE (20:15)
[2018-08-11] MEDS: QUEtiapine FUMARATE 25 MG TAB TUBE SCH (20:35)
[2018-08-11] MEDS ORDERED: FAMOTIDINE 20 MG TAB PO SCH (21:00)
[2018-08-11] MEDS ORDERED: levETIRAcetam 500 MG TAB PO SCH (21:00)
[2018-08-12] MEDS: METOCLOPRAMIDE 10 MG/2 ML VIAL IVP SCH ×4 (01:09→16:46)
[2018-08-12] MEDS: HALOPERIDOL LACT 5 MG/ML INJ IVP PRN ×3 (04:38→23:06)
[2018-08-12] MEDS: NYSTATIN SUSP 500000 UNIT/5 ML UDCUP PO SCH ×4 (06:23→21:24)
[2018-08-12] MEDS: DEXMEDETOMIDINE HCL 1,000 MCG in NS 250 ML IV SCH ×3 (06:23→16:58)
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
[2018-08-12] MEDS: ERTAPENEM 1 GM in NS 100 ML IV SCH (08:14)
[2018-08-12] MEDS: guaiFENesin 200 MG/10 ML UDL TUBE SCH ×2 (08:17→19:45)
[2018-08-12] MEDS: BENEFIBER/NUTRISOURCE FIBER PKT 1 EACH PO SCH (08:17)
[2018-08-12] MEDS: THIAMINE HCL 100 MG TAB TUBE SCH (08:21)
[2018-08-12] MEDS ORDERED: levETIRAcetam 500MG/NACL 100 ML IV ONE ×2 (09:00→23:45)
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
[2018-08-12] MEDS ORDERED: ceFAZolin 2 GM/DEXTROSE 100 ML IV ONE (09:30)
[2018-08-12] MEDS: FAMOTIDINE 20 MG TAB TUBE SCH ×2 (09:49→19:45)
[2018-08-12] MEDS: levETIRAcetam 500 MG/5 ML UDCUP TUBE SCH ×2 (09:49→19:45)
[2018-08-12] MEDS: NICOTINE 14 MG/24 HR PATCH TD SCH (09:50)
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
[2018-08-12] MEDS ORDERED: BENEFIBER/NUTRISOURCE FIBER PKT 1 EACH TUBE SCH (12:00)
[2018-08-12] MEDS ORDERED: LIDOCAINE 2% 2 ML INJ ONE (12:31)
[2018-08-12] MEDS ORDERED: PROPOFOL 200 MG/20 ML VIAL ONE (12:31)
[2018-08-12] MEDS ORDERED: fentaNYL 100 MCG/2 ML INJ ONE (12:31)
[2018-08-12] MEDS ORDERED: SUCCINYLCHOLINE CHLORIDE 200 MG/10 ML SYR IVP ONE (12:32)
[2018-08-12] MEDS ORDERED: CEFAZOLIN 2 GM/DEXTROSE/100 ML BAG IV ONE (12:33)
--- NOTE | 2018-08-12 12:48 | PDANEPAE ---
ANE History of Present Illness HEAD TRAUMA now for PEG ANE Past Medical History - Cardiovascular History Hx Hypertension: No Hx Arrhythmias: No Hx Chest Pain: No Hx Coronary Artery / Peripheral Vascular Disease: No Hx CHF / Valvular Disease: No Hx Palpitations: No - Pulmonary History Hx COPD: No Hx Asthma/Reactive Airway Disease: No Hx Recent Upper Respiratory Infection: No Hx Oxygen in Use at Home: No Hx Sleep Apnea: No - Endocrine History Hx Diabetes: No Hypothyroid: No Hyperthyroid: No Obesity: no ANE Review of Systems Review of systems is: negative Review of Systems: - Exercise capacity Exercise capacity: limited by disability ANE Patient History - Allergies Allergies/Adverse Reactions: Penicillins Allergy (Verified 10/05/17 21:20) - Home Medications Home medications: home medication list seen and reviewed Home Medications: Zolpidem Tartrate [Ambien] 10 mg PO HS 08/02/18 [Last Taken Unknown] - Anes Hx Anes Hx: no prior problems - Smoking Hx Smoking Status: Current every day smoker - Alcohol Use Alcohol Use: Heavy (unknown whether he is a daily drinker or binge drinker) ANE Labs/Vital Signs - Labs Result Diagrams: 08/08/18 04:35 08/12/18 08:00 - Vital Signs Blood Pressure: 119/97 Heart Rate: 76 Respiratory Rate: 28 O2 Sat (%): 4 Height: 177.8 cm Weight: 84.9 kg ANE Physical Exam - Airway Neck exam: FROM Mallampati Score: Unable to assesss Mouth exam: normal dental/mouth exam - Pulmonary Pulmonary: no respiratory distress - Cardiovascular Cardiovascular: regular rate and rhythym - ASA Status ASA Status: III ANE Anesthesia Plan Anesthesia Plan: general endotracheal anesthesia Urgent/Emergent Case: Vimal pace completed preop but documented later for safe timely pt care
[2018-08-12] MEDS ORDERED: MIDAZOLAM 2 MG/2 ML VIAL ONE (13:04)
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
--- NOTE | 2018-08-12 13:53 | POSTANESTH ---
Post Anesthetic Evaluation Cardiovascular Status: Similar to Pre-Op Cond Respiratory Status: Similar to Pre-op Cond. Level of Consciousness/Mental Status: Moderately Sleepy Pain Control: Adequate, Prn Tx Ordered Nausea/Vomiting Control: Adequate, Prn Tx Ordered Complications Possibly Related to Anesthesia: None Noted
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
--- NOTE | 2018-08-12 16:27 | ASMTCMCOM ---
CM Note CM Note Notes: Gave information on [facility] to the family for their review. Patient is most likely going to need a SNF stay when first d/c'ing from the hospital. Made referrals to [facility], [facility], and [facility]. Patient's family has visited with [facility] and [facility]. SisterFrancia has to return home tomorrow. Patient's mother Isabel will remain here with the patient. CM will follow. Date Signed: 08/12/2018 04:27 PM Electronically Signed By:Ashly Simmons LCSW
[2018-08-12] MEDS: NS 1,000 ML IV SCH (16:58)
[2018-08-12] MEDS: LORazepam 2 MG/ML INJ IVP PRN ×2 (19:22→23:30)
[2018-08-12] MEDS: QUEtiapine FUMARATE 25 MG TAB TUBE SCH (19:45)
[2018-08-13] MEDS: METOCLOPRAMIDE 10 MG/2 ML VIAL IVP SCH ×4 (00:31→16:35)
[2018-08-13] MEDS: DEXMEDETOMIDINE HCL 1,000 MCG in NS 250 ML IV SCH ×2 (00:48→17:34)
[2018-08-13] MEDS: NS 1,000 ML IV SCH ×2 (05:00→17:40)
[2018-08-13] MEDS ORDERED: VANCOMYCIN 125 MG/2.5 ML UDL TUBE SCH (06:00)
[2018-08-13] MEDS: HALOPERIDOL LACT 5 MG/ML INJ IVP PRN ×2 (06:18→13:03)
[2018-08-13] MEDS: NYSTATIN SUSP 500000 UNIT/5 ML UDCUP PO SCH ×4 (06:20→21:50)
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
[2018-08-13] MEDS: levETIRAcetam 500 MG/5 ML UDCUP TUBE SCH ×2 (10:28→21:47)
[2018-08-13] MEDS: FAMOTIDINE 20 MG TAB TUBE SCH ×2 (10:28→21:50)
[2018-08-13] MEDS: THIAMINE HCL 100 MG TAB TUBE SCH (10:29)
[2018-08-13] MEDS: guaiFENesin 200 MG/10 ML UDL TUBE SCH ×2 (11:25→21:49)
[2018-08-13] MEDS: ENOXAPARIN 40 MG/0.4 ML SYR SC SCH (11:25)
[2018-08-13] MEDS: NICOTINE 14 MG/24 HR PATCH TD SCH (11:26)
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
[2018-08-13] MEDS: VANCOMYCIN 125 MG/2.5 ML UDL TUBE SCH ×3 (12:20→21:50)
[2018-08-13] MEDS: LORazepam 2 MG/ML INJ IVP PRN (13:20)
[2018-08-13] MEDS: QUEtiapine FUMARATE 25 MG TAB TUBE SCH (21:50)
[2018-08-14] MEDS: METOCLOPRAMIDE 10 MG/2 ML VIAL IVP SCH ×5 (00:19→23:56)
[2018-08-14] MEDS: HALOPERIDOL LACT 5 MG/ML INJ IVP PRN (01:58)
[2018-08-14] MEDS: DEXMEDETOMIDINE HCL 1,000 MCG in NS 250 ML IV SCH (03:24)
[2018-08-14] MEDS: NS 1,000 ML IV SCH ×2 (05:22→18:27)
[2018-08-14] MEDS: VANCOMYCIN 125 MG/2.5 ML UDL TUBE SCH ×4 (05:22→21:10)
[2018-08-14] MEDS: NYSTATIN SUSP 500000 UNIT/5 ML UDCUP PO SCH ×4 (05:46→21:09)
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
[2018-08-14] MEDS: ENOXAPARIN 40 MG/0.4 ML SYR SC SCH (10:35)
[2018-08-14] MEDS: NICOTINE 14 MG/24 HR PATCH TD SCH (10:36)
[2018-08-14] MEDS: FAMOTIDINE 20 MG TAB TUBE SCH ×2 (10:36→21:09)
[2018-08-14] MEDS: guaiFENesin 200 MG/10 ML UDL TUBE SCH ×2 (10:36→21:09)
[2018-08-14] MEDS: THIAMINE HCL 100 MG TAB TUBE SCH (10:36)
[2018-08-14] MEDS: levETIRAcetam 500 MG/5 ML UDCUP TUBE SCH ×2 (10:37→21:09)
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
[2018-08-14] MEDS: QUEtiapine FUMARATE 25 MG TAB TUBE SCH (21:09)
[2018-08-14] MEDS: POTASSIUM Cl (KCl) 50 ML IV SCH (22:45)
[2018-08-15] MEDS: POTASSIUM Cl (KCl) 50 ML IV SCH (01:02)
[2018-08-15] MEDS: DEXMEDETOMIDINE HCL 1,000 MCG in NS 250 ML IV SCH (03:47)
[2018-08-15] MEDS: VANCOMYCIN 125 MG/2.5 ML UDL TUBE SCH ×4 (05:04→21:04)
[2018-08-15] MEDS: NYSTATIN SUSP 500000 UNIT/5 ML UDCUP PO SCH ×4 (05:04→21:04)
[2018-08-15] MEDS: METOCLOPRAMIDE 10 MG/2 ML VIAL IVP SCH (05:04)
[2018-08-15] MEDS: NS 1,000 ML IV SCH ×2 (08:48→21:30)
[2018-08-15] MEDS: levETIRAcetam 500 MG/5 ML UDCUP TUBE SCH ×2 (08:48→21:03)
[2018-08-15] MEDS: guaiFENesin 200 MG/10 ML UDL TUBE SCH ×2 (08:48→21:03)
[2018-08-15] MEDS: ENOXAPARIN 40 MG/0.4 ML SYR SC SCH (08:49)
[2018-08-15] MEDS: NICOTINE 14 MG/24 HR PATCH TD SCH (08:49)
[2018-08-15] MEDS: THIAMINE HCL 100 MG TAB TUBE SCH (08:49)
[2018-08-15] MEDS: FAMOTIDINE 20 MG TAB TUBE SCH ×2 (08:49→21:04)
--- NOTE | 2018-08-15 09:02 | ASMTCMCOM ---
CM Note CM Note Notes: CM sent referrals to [facility] as well as [facility] today. Date Signed: 08/15/2018 08:57 AM Electronically Signed By:Carmita Donahue LCSW
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
--- NOTE | 2018-08-15 13:40 | ASMTCMCOM ---
CM Note CM Note Notes: [facility] Admissions coming Wednesday at 2:00 PM to meet with family. They can admit patient . This CM contacted patient's mother to let her know. Date Signed: 08/15/2018 01:40 PM Electronically Signed By:Carmita Donahue LCSW
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
[2018-08-15] MEDS: oxyCODONE ORAL SOLUTION 10 MG/0.5 ML UDSYR PO PRN ×2 (16:06→23:13)
[2018-08-15] MEDS: QUEtiapine FUMARATE 25 MG TAB TUBE SCH (21:04)
[2018-08-16] MEDS: VANCOMYCIN 125 MG/2.5 ML UDL TUBE SCH ×2 (05:00→12:12)
[2018-08-16] MEDS: NYSTATIN SUSP 500000 UNIT/5 ML UDCUP PO SCH ×2 (05:00→12:22)
[2018-08-16] MEDS: oxyCODONE ORAL SOLUTION 10 MG/0.5 ML UDSYR PO PRN ×2 (06:49→21:38)
[2018-08-16] MEDS: levETIRAcetam 500 MG/5 ML UDCUP TUBE SCH (08:54)
[2018-08-16] MEDS: FAMOTIDINE 20 MG TAB TUBE SCH (08:54)
[2018-08-16] MEDS: THIAMINE HCL 100 MG TAB TUBE SCH (08:54)
[2018-08-16] MEDS: ENOXAPARIN 40 MG/0.4 ML SYR SC SCH (08:54)
[2018-08-16] MEDS: guaiFENesin 200 MG/10 ML UDL TUBE SCH (08:54)
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
[2018-08-16] MEDS: VANCOMYCIN 125 MG/2.5 ML UDL PO SCH ×3 (12:21→21:27)
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
--- NOTE | 2018-08-16 19:18 | TRAUMAPN ---
Trauma Progress Note Assessment/Plan: 08/16/2018 PAD#15 Assessment: Seen by [facility] today for possible transfer. No decision yet. Has had occasional SVT(?) PICC in right atrium. No longer needed. Successfully transitioned to oral feeds. Seems to function with simple sentences. Diarrhea seems to have resolved Plan: Await acceptance at rehab Continue to prune MAR DC PICC line. Continue oral Vanco for C. diff Obtain F/u CXR prior to transfer Subjective: no complaints indicated Objective: Vital Signs Temp Pulse Resp BP Pulse Ox 36.9 C 92 15 129/93 H 93 08/16/18 04:00 08/16/18 15:59 08/16/18 15:59 08/16/18 15:59 08/16/18 15:59 Laboratory Results 08/08/18 04:35 08/15/18 04:44 08/15/18 08/16/18 08/17/18 05:59 05:59 05:59 Intake Total 3413 3419.4 700 Output Total 600 Balance 2813 3419.4 700 PT 13.1 SEC (12.0-15.0) 07/31/18 22:22 INR 0.97 (0.83-1.16) 07/31/18 22:22 - C-Spine Clearance Cervical Spine Cleared: No Physical Exam - Physical Exam General Appearance: WD/WN, alert, no apparent distress Neck: non-tender, full range of motion, supple Respiratory: chest non-tender, lungs clear, normal breath sounds Cardiac/Chest: regular rate, rhythm Abdomen: normal bowel sounds, non-tender, soft Male Genitalia: deferred Rectal: deferred Back: Normal inspection Skin: normal color, warm/dry Lymphatic: no adenopathy Extremities: normal range of motion, non-tender Neuro/Psych: alert Time Spent w/Patient (minutes): 35
[2018-08-16] MEDS: FAMOTIDINE 20 MG TAB PO SCH (21:28)
[2018-08-16] MEDS: levETIRAcetam 500 MG TAB PO SCH (21:28)
[2018-08-16] MEDS: QUEtiapine FUMARATE 25 MG TAB PO SCH (21:28)
[2018-08-16] MEDS: guaiFENesin 600 MG TAB.ER PO SCH (21:28)
[2018-08-17] MEDS: VANCOMYCIN 125 MG/2.5 ML UDL PO SCH ×4 (05:38→20:50)
[2018-08-17] MEDS: levETIRAcetam 500 MG TAB PO SCH ×2 (09:37→20:49)
[2018-08-17] MEDS: guaiFENesin 600 MG TAB.ER PO SCH (09:37)
[2018-08-17] MEDS: THIAMINE HCL 100 MG TAB PO SCH (09:38)
[2018-08-17] MEDS: ENOXAPARIN 40 MG/0.4 ML SYR SC SCH (09:39)
[2018-08-17] MEDS: FAMOTIDINE 20 MG TAB PO SCH ×2 (09:41→20:50)
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
[2018-08-17] MEDS ORDERED: oxyCODONE ORAL SOLUTION 10 MG/0.5 ML UDSYR PO PRN (12:11)
[2018-08-17] MEDS: ACETAMINOPHEN 325 MG TAB PO PRN (12:31)
[2018-08-17] MEDS ORDERED: HALOPERIDOL LACT 5 MG/ML INJ ONE (15:52)
[2018-08-17] MEDS ORDERED: chlordiazePOXIDE 25 MG CAP ONE (16:01)
[2018-08-17] MEDS ORDERED: HALOPERIDOL LACT 5 MG/ML INJ IM ONE (16:15)
--- NOTE | 2018-08-17 16:21 | ASMTCMCOM ---
CM Note CM Note Notes: Patient has been accepted with [facility] and they have the insurance auth number. We have a bed for tomorrow but we will need to arrange for transport in the morning before lunch. Discharge summaries are needed early in the morning to set up transport and finalize arrangements. Patient will likely need some medicine to remain calm during the trip via ambulance to [facility]. Patient had an episode today where he walked out of his room to go home and then was refusing to get in a wheelchair and return to his room. We are preparing his transfer packet and have ordered a radiology disc to go with him. Patient's mother Isabel was informed of the schedule. CM will follow. Date Signed: 08/17/2018 04:20 PM Electronically Signed By:Ashly Simmons LCSW
[2018-08-17] MEDS ORDERED: HALOPERIDOL LACT 5 MG/ML INJ IM PRN (16:30)
[2018-08-17] MEDS ORDERED: chlordiazePOXIDE 25 MG CAP PO PRN (16:32)
[2018-08-17] MEDS ORDERED: oxyCODONE IR 5 MG TAB PO PRN (16:33)
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
--- NOTE | 2018-08-17 17:04 | TRAUMAPN ---
Trauma Progress Note Assessment/Plan: 08/16/2018 PAD#15 Assessment: Seen by [facility] today for possible transfer. No decision yet. Has had occasional SVT(?) PICC in right atrium. No longer needed. Successfully transitioned to oral feeds. Seems to function with simple sentences. Diarrhea seems to have resolved Plan: Await acceptance at rehab Continue to prune MAR DC PICC line. Continue oral Vanco for C. diff Obtain F/u CXR prior to transfer PAD#16 08/17/2018 Assessment: [facility] accepted Mr. Valles for transfer tomorrow He has again become impulsive today and did require haldol Subjective: No complaints Objective: Vital Signs Temp Pulse Resp BP Pulse Ox 36.4 C 129 H 18 129/91 H 95 08/17/18 12:00 08/17/18 16:00 08/17/18 16:00 08/17/18 16:00 08/17/18 16:00 Laboratory Results 08/08/18 04:35 08/15/18 04:44 08/16/18 08/17/18 08/18/18 05:59 05:59 05:59 Intake Total 3419.4 1200 Balance 3419.4 1200 PT 13.1 SEC (12.0-15.0) 07/31/18 22:22 INR 0.97 (0.83-1.16) 07/31/18 22:22 - C-Spine Clearance Cervical Spine Cleared: No Physical Exam - Physical Exam General Appearance: alert, other (answers simple sentances) Respiratory: lungs clear, normal breath sounds Cardiac/Chest: regular rate, rhythm Abdomen: non-tender, soft Male Genitalia: deferred Rectal: deferred Back: Normal inspection Skin: normal color, warm/dry Time Spent w/Patient (minutes): 25
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
[2018-08-17] MEDS: QUEtiapine FUMARATE 25 MG TAB PO SCH (20:49)
[2018-08-18] MEDS: ACETAMINOPHEN 325 MG TAB PO PRN (01:17)
[2018-08-18 06:32] VITALS: BP 138/97
[2018-08-18] MEDS: VANCOMYCIN 125 MG/2.5 ML UDL PO SCH (06:35)
[2018-08-18] MEDS: levETIRAcetam 500 MG TAB PO SCH (08:21)
[2018-08-18] MEDS: FAMOTIDINE 20 MG TAB PO SCH (08:21)
[2018-08-18] MEDS: THIAMINE HCL 100 MG TAB PO SCH (08:22)
[2018-08-18] MEDS: ENOXAPARIN 40 MG/0.4 ML SYR SC SCH (08:22)
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
== END 2018-08-18 10:07 | DRG 963 ==
LOC: EDUNIT# → OBSVTOIN 23:30 → EEVIPCON 23:30 → F2N 08-01 01:29
PROVIDERS: ADMIT Surgery; ATTEND Surgery
PROC: 0B968ZX Drainage of Right Lower Lobe Bronchus, Via Natural or Artificial Opening Endoscopic, Diagnostic (ICD-10-PCS; principal; 2018-08-06)
PROC: 0B968ZZ Drainage of Right Lower Lobe Bronchus, Via Natural or Artificial Opening Endoscopic (ICD-10-PCS; 2018-08-07)
PROC: 0B9B8ZZ Drainage of Left Lower Lobe Bronchus, Via Natural or Artificial Opening Endoscopic (ICD-10-PCS; 2018-08-10)
PROC: 0W993ZZ Drainage of Right Pleural Cavity, Percutaneous Approach (ICD-10-PCS; 2018-08-11)
PROC: 0DH63UZ Insertion of Feeding Device into Stomach, Percutaneous Approach (ICD-10-PCS; 2018-08-11)
PROC: 02H633Z Insertion of Infusion Device into Right Atrium, Percutaneous Approach (ICD-10-PCS; 2018-08-11)
PROC: HZ2ZZZZ Detoxification Services for Substance Abuse Treatment (ICD-10-PCS; 2018-08-11)
PROC: 0B9B8ZX Drainage of Left Lower Lobe Bronchus, Via Natural or Artificial Opening Endoscopic, Diagnostic (ICD-10-PCS; 2018-08-12)
DX: S06.6X0A Traumatic subarachnoid hemorrhage without loss of consciousness, initial encounter (principal); S06.340A Traumatic hemorrhage of right cerebrum without loss of consciousness, initial encounter; S06.350A Traumatic hemorrhage of left cerebrum without loss of consciousness, initial encounter; S27.2XXA Traumatic hemopneumothorax, initial encounter; S27.321A Contusion of lung, unilateral, initial encounter; S22.41XA Multiple fractures of ribs, right side, initial encounter for closed fracture; S36.114A Minor laceration of liver, initial encounter; A04.72 Enterocolitis due to Clostridium difficile, not specified as recurrent; J69.0 Pneumonitis due to inhalation of food and vomit; B95.61 Methicillin susceptible Staphylococcus aureus infection as the cause of diseases classified elsewhere; B95.1 Streptococcus, group B, as the cause of diseases classified elsewhere; S02.81XA Fracture of other specified skull and facial bones, right side, initial encounter for closed fracture; F10.239 Alcohol dependence with withdrawal, unspecified; J90 Pleural effusion, not elsewhere classified; Q68.1 Congenital deformity of finger(s) and hand; V00.181A Fall from other rolling-type pedestrian conveyance, initial encounter; Y92.410 Unspecified street and highway as the place of occurrence of the external cause; Y99.8 Other external cause status; R40.2422 Glasgow coma scale score 9-12, at arrival to emergency department; F10.220 Alcohol dependence with intoxication, uncomplicated; Y90.8 Blood alcohol level of 240 mg/100 ml or more; R13.10 Dysphagia, unspecified; R09.02 Hypoxemia; R45.1 Restlessness and agitation; G47.33 Obstructive sleep apnea (adult) (pediatric); F17.210 Nicotine dependence, cigarettes, uncomplicated; Z79.82 Long term (current) use of aspirin; Z88.0 Allergy status to penicillin; Z23 Encounter for immunization
CPT/HCPCS: 80307; 92507-GN; 92523-GN; 92526-GN; 92610-GN; 97112-GP; 97116-GP; 97162-GP; 97167-GO; 97530-GO; 97530-GP; 97535-GO; B4087; C1751; G0008; G0009; G0480; G0515-GO; J0330; J0690; J1335; J1630; J1650; J1940; J1953; J2060; J2250; J2270; J2405; J2704; J2765; J3010; J3411; J3475; J3480; L0172; Q9967